=== PATIENT | female | born 2000 | race Two or more races ===

== ENCOUNTER 2024-06-17 17:44 | Emergency (ER) | payer OTHER, MEDICAID ==
[~2024-06-17] VITALS: Ht 144.8 cm; Wt 61.4 kg
--- NOTE | 2024-06-17 18:22 | ED.PDOC ---
History of Present Illness HPI Comments 33-year-old female who comes in with chief complaint of some left and right flank pain. The patient states that the symptoms started approximately 30 minutes ago and then she started having some mild vaginal bleeding. She does have a history of PCOS. She states that this is her 1st and so she came to the emergency department's for evaluation. There has been no other complaints at this time. The patient denies any dysuria. Chief Complaint: Vaginal Bleed Time Seen by MD: 17:51 Reviewed Notes: Nurses Notes, Medications, Allergies (No allergies to medications) Allergies: Coded Allergies: NO KNOWN ALLERGIES (Unverified , 06/17/24) Information Source: Patient Mode of Arrival: Ambulatory Severity: Moderate Timing: Minutes Duration: Since onset Prehospital treatment: None Associated signs and symptoms No nausea, vomiting or diarrhea but the patient was having some vaginal bleeding and left and right flank pain Past Medical History Past Medical History (Other): PCOS Surgical History: Denies all surgeries JELLY MAKER History: No Pertinent JELLY MAKER History Family History Family History: Reviewed,noncontributory to illness, No family hx of Cancer, No family hx of DM, No family hx of Heart sachin, No family hx of HTN, No family hx ofKidney sachin, No family hx of Liver sachin, No family hx of Lung sachin, No family hx of Stroke Social History Smoker: Non-Smoker Alcohol: Denies ETOH Use Drugs: Denies Drug Use Lives In: Home Constitutional: denies: chills, diaphoresis, fatigue, fever, malaise, sweats, weakness, others EENTM: denies: blurred vision, double vision, ear bleeding, ear discharge, ear drainage, ear pain, ear ringing, eye pain, eye redness, hearing loss, mouth pain, mouth swelling, nasal discharge, nose bleeding, nose congestion, nose pain, photophobia, tearing, throat pain, throat swelling, voice changes, others Respiratory: denies: cough, hemoptysis, orthopnea, SOB at rest, shortness of breath, SOB with excertion, stridor, wheezing, others Cardiovascular: denies: chest pain, dizzy spells, diaphoresis, Dyspnea on exertion, edema, irregular heart beat, left arm pain, lightheadedness, palpitations, PND, syncope, others Gastrointestinal: denies: abdomen distended, abdominal pain, blood streaked bowels, constipated, diarrhea, dysphagia, difficulty swallowing, hematemesis, melena, nausea, poor appetite, poor fluid intake, rectal bleeding, rectal pain, vomiting, others Genitourinary: reports: abnormal vagina bleeding, pain, ; denies: burn ing, dyspareunia, dysuria, flank pain, frequency, hematuria, incontinence, vagina discharge, urgency, others Neurological: denies: dizziness, fainting, headache, left sided numbness, left sided weakness, numbness, paresthesia, pre-existing deficit, right sided numbness, right sided weakness, seizure, speech problems, tingling, tremors, weakness, others Musculoskeletal: denies: back pain, gout, joint pain, joint swelling, muscle pain, muscle stiffness, neck pain, others Integumetry: denies: bruises, change in color, change in hair/nails, dryness, laceration, lesions, lumps, rash, wounds, others Allergic/Immunocompromised: denies: Difficulty Healing, Frequent Infections, Hi ves, Itching, others Hematologic/Lymphatic: denies: anemia, blood clots, easy bleeding, easy bruising, swollen glands, others Endocrine: denies: excessive hunger, excessive sweating, excessive thirst, excessive urination, flushing, intolerance to cold, intolerance to heat, unexplained weight gain, unexplained weight loss, others Psychiatric: denies: anxiety, bipolar disorder, depression, hopeless, panic disorder, schizophrenia, sleepless, suicidal, others Physical Exam General Appearance: No Apparent Distress HEENT: Normal ENT Inspection, Pharynx Normal, TMs Normal Neck: Full Range of Motion, Non-Tender, Normal, Normal Inspection Respiratory: Chest Non-Tender, Lungs Clear, No Accessory Muscle Use, No Respiratory Distress, Normal Breath Sounds Cardiovascular: No Edema, No JVD, No Murmur, No Gallop, Normal Peripheral Pulses, Regular Rate/Rhythm Breast Exam: Deferred Gastrointestinal: No Organomegaly, Non Tender, No Pulsatile Mass, Normal Bowel Sounds, Soft Genitalia: Deferred Pelvic: Deferred Rectal: Deferred Extremities: No calf tenderness, Normal capillary refill, Normal inspection, Normal range of motion, Non-tender, No pedal edema Musculoskeletal : Apperance: Normal Neurologic: Alert, sole tacker II-XII nml as Tested, No Motor Deficits, Normal Affect, Normal Mood, No Sensory Deficits Cerebellar Function: Normal Reflexes: Normal Skin: Dry, Normal Color, Warm Lymphatic: No Adenopathy Was a procedure done? Was a procedure done?: No Differential Dx Considerations may include: Threatened , ectopic X-Ray, Labs, Meds, VS Vital Signs Date Time Temp Pulse Resp B/P (MAP) Pulse Ox O2 Delivery O2 Flow Rate FiO2 06/17/24 18:00 98.9 102 16 120/79 (93) 98 Lab Test 06/17/24 19:46 06/17/24 18:12 Range/Units Urine Color Pending Urine Clarity Pending Urine pH Pending Urine Specific Altha Pending Urine Protein Pending Urine Ketones Pending Urine Blood Pending Urine Nitrite Pending Urine Bilirubin Pending Urine Urobilinogen Pending Urine Leukocyte Esterase Pending Urine RBC Pending Urine Microscopic WBC Pending Urine Squamous Epithelial Cells Pending Urine Bacteria Pending Urine Glucose Pending Beta HCG, Quantitative 2875.4 H 1.5-4.2 mIU/mL Pelvic ultrasound shows: IMPRESSION: Possible early IUP at 5 weeks and 6 days. No heart rate is present at this time. This may be related to early gestational state. Close clinical and sonographic follow-up advised. Recommend correlation with serial beta HCG. The patient had a quantitative hCG at 2875 The patient was being discharged and will follow up with the primary care doctor The patient will return to the emergency department's the condition worsens. We did explain to the patient that there was no heart tones seen and there is a concern for demise at they do understand and agree with the management. They will follow up with her doctor Images Reviewed?: Images reviewed and evaluated by me Time of 1ST Reevaluation: 20:06 Reevaluation 1ST: Improved Patient Education/Counseling: Diagnosis, Treatment, Prognosis, Need For Follow Up Family Education/Counseling: No Family Present Departure 1 Departure Time of Disposition: 20:06 Impression: Primary Impression: Threatened Disposition: HOME / SELF CARE / HOMELESS Condition: Fair Discharged With: Self Critical Care Note Critical Care Time?: No Stability Stability form required: No Heart Score Heart Score: Heart Score Response (Comments) Value History N/A 0 EKG N/A 0 Age N/A 0 Risk Factors N/A 0 Troponin N/A 0 Total 0 EASTON HAYNES MD Jun 17, 2024 18:22
--- NOTE | 2024-06-17 19:30 | DVH ---
OB ULTRASOUND <14 WEEKS: HISTORY: pain TECHNIQUE: Multiple real-time grayscale sonographic images of the pelvis with duplex Doppler color f low, spectral and M-mode analysis. TRANSDUCERS: Transabdominal and transvaginal COMPARISON: None FINDINGS: The uterus measures 6.5 x 4.5 x 4.1 cm The cervix is not visualized Right ovary measures 2.2 x 1.8 x 1.7 cm with normal Doppler color flow. Left ovary measures 4.2 x 3.1 x 3.0 cm with normal Doppler color flow. Left ovarian cyst measures 2.7 cm. IUP single fetus at 5 weeks and 6 days average ultrasound age based on mean crown-rump length of 0.3 cm and gestational sac size of 0.8 cm No heart rate at this time. Yolk sac is present. Amniotic fluid subjectively within normal limits Cat-gestational space: Unremarkable IMPRESSION: Possible early IUP at 5 weeks and 6 days. No heart rate is present at this time. This may be r elated to early gestational state. Close clinical and sonographic follow-up advised. Recommend corre lation with serial beta HCG.
[2024-06-17 19:48] LABS: Urine Bacteria None Seen /hpf (None Seen)
[2024-06-17 20:06] LABS: Urine Blood 2+ /uL (Negative); Urine Clarity Clear (Clear); Urine Color Colorless (Yellow); Urine Protein, UAD Negative (Negative); Urine Specific Gravity 1.008 (1.001-1.035); Urine Squamous Epithelial Cell FEW /hpf (<5); Urine Urobilinogen Normal (Negative); Urine WBC < 1 /HPF (0-5); Urine pH 5.5 (5.0-9.0)
[2024-06-17 20:50] VITALS: BP 109/78; PULSE 88; RESP 12; TEMP 98.5; O2SAT 98
== END 2024-06-17 21:21 | disposition home or self-care (01) ==
LOC: ER 17:44
DX: O20.0 Threatened abortion (principal); R10.2 Pelvic and perineal pain; E28.2 Polycystic ovarian syndrome; Z3A.00 Weeks of gestation of pregnancy not specified
CPT/HCPCS: 36415; 76801; 76817; 81001; 84702

== ENCOUNTER 2024-06-18 21:39 | Emergency (ER) | payer OTHER, MEDICAID ==
[~2024-06-18] VITALS: Ht 152.4 cm; Wt 62.8 kg
[2024-06-18 22:08] LABS: Urine Bacteria None Seen /hpf (None Seen)
--- NOTE | 2024-06-18 22:08 | ED.PDOC ---
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 23F was in the ER yesterday for having light bleeding while being 6 weeks and being . Patient states she is six weeks gestation. Yesterday, Pt was diagnosed w/ a threatened abortionand was informed to come back to the ER if symptoms worsen. Today, Pt was having lower ABD cramping pain associated w/ heavy vaginal bleeding and passing a "big blood clot". PMHX:PCOS and Anxiety SHX: Denies any REVIEW OF SYSTEMS: CONSTITUTIONAL: Denies acute: fever, diaphoresis, chills, generalized weakness. HEAD: Denies acute: headache, photophobia Eyes: Denies acute: Double vision, vision loss, eye pain, eye discharge. EARS: Denies acute: tinnitus, hearing loss, ear discharge, ear pain, THROAT: Denies acute: sore throat, swelling, difficulty swallowing , pain with swallowing, change in voice. NECK: Denies acute: neck pain, neck swelling, stiff neck. HEART: Denies acute : chest pain, palpitations, LUNGS: Denies acute: SOB, wheezing, cough, hemoptysis ABDOMEN: Denies acute: abdominal pain, Nausea, Vomiting, diarrhea, melena , hematemesis, hematochezia SKIN: Denies acute: rash, redness, lesions, itchiness. EXTREMITIES: Denies acute: calf pain, numbness, tingling, weakness, denies pain in extremity. Denies acute: Low back pain. Neuro: Denies acute: focal neurological deficit, motor or sensory focal neurological deficit, tremors, seizure like activity, confusion, dizziness, change in mental status, loss of bowel or bladder function, cauda equina like symptoms. : Denies acute: dysuria, hematuria, flank pain, increase in urinary frequency. PSYCH: Denies acute: hallucination, suicidal ideation, homicidal ideation. FEMALE: Denies acute: foul odor, unusual discharge. PHYSICAL EXAM: General: no acute distress, awake and alert. Head: normocephalic, atraumatic. Neck: supple, trachea is midline, no swelling. Throat: Normal phonation. Eyes:, no erythema, no purulent discharge, no proptosis, no icterus. Heart: regular rate, regular rhythm, no significant murmur appreciated. Lungs: no apparent respiratory distress, Able to speak in full sentences. No wheezing, no rhonchi, no crackles. No stridors Clear to auscultation bilaterally. Abdomen: Pelvic tender to palpation, non distended, soft, no guarding, no rebound, + bowel sounds. Neuro: Awake, Alert, oriented to name, self, situation, follows commands GCS=15. Speech is normal. Skin: no petechia, no purpura, no cyanosis, non-pale, not jaundice. Lower extremities: --no - Pitting edema no deformity, no focal swelling, no calf TTP. Makes eye contact. moves all four extremities. Face: no apparent facial droop. Ambulating in the ED independently. ED COURSE: Chief Complaint: Time Seen by MD: 22:40 Reviewed Notes: Nurses Notes, Allergies Allergies: Coded Allergies: NO KNOWN ALLERGIES (Unverified , 06/17/24) Information Source: Patient Mode of Arrival: Ambulatory Timing: Hours Prehospital treatment: None Severity: Moderate Vaginal Discharge: None Vaginal Lesions: None Bleeding Quality: Clotted Vaginal Mass: None Onset Of Mass/Bleeding: Spontaneous Sexual Activity: Last Consensual [place]: Unknown Control: None History of: Current Blood Type: Unknown Symptoms of Possible : Missed Period Associated Signs and Symptoms: Vaginal Bleeding Past Medical History PAST MEDICAL HISTORY: Anxiety Past Medical History (Other): PCOS, Surgical History: Denies all surgeries [employer] [employer] History: Ovarian Cysts Family History Family History: Reviewed,noncontributory to illness, Unknown Social History Smoker: Non-Smoker Alcohol: Denies ETOH Use Drugs: Denies Drug Use Lives In: Home Was a procedure done? Was a procedure done?: No Differential Diagnosis ([facility]) Vaginal Bleeding: Other (Differential diagnosis includes but not limited to DU B, menorrhea, metromenorrhagia, neoplasm, coagulopathy,, trauma, miscarriage, placenta previa, placental abruption, ) X-Ray, Labs, Meds, VS Vital Signs Date Time Temp Pulse Resp B/P (MAP) Pulse Ox O2 Delivery O2 Flow Rate FiO2 06/18/24 21:48 98.0 113 18 123/65 (84) 98 Lab Test 06/18/24 22:30 06/18/24 21:50 Range/Units White Blood Count 17.6 H 4.4-10.8 10^3/uL Red Blood Count 4.30 4.0-5.20 10^6/uL Hemoglobin 13.2 12.2-16.2 g/dL Hematocrit 38.3 36.0-46.0 % Mean Corpuscular Volume 89.0 80.0-100.0 fL Mean Corpuscular Hemoglobin 30.6 28.0-32.0 pg Mean Corpuscular Hemoglobin Concent 34.4 32.0-36.0 g/dL Red Cell Distribution Width 13.0 11.8-14.3 % Platelet Count 477 H 140-450 10^3/uL Mean Platelet Volume 6.9 6.9-10.8 fL Neutrophils (%) (Auto) 70.1 37.0-80.0 % Lymphocytes (%) (Auto) 20.4 10.0-50.0 % Monocytes (%) (Auto) 6.4 0.0-12.0 % Eosinophils (%) (Auto) 2.5 0.0-7.0 % Basophils (%) (Auto) 0.6 0.0-2.0 % Neutrophils # (Auto) 12.3 H 1.6-8.6 10 ^3/uL Lymphocytes # (Auto) 3.6 0.4-5.4 10 ^3/uL Monocytes # (Auto) 1.1 0-1.3 10 ^3/uL Eosinophils # (Auto) 0.4 0-0.8 10 ^3/uL Basophils # (Auto) 0.1 0-0.2 10 ^3/uL Nucleated Red Blood Cells 0.0 % Sodium Level 139 136-145 mmol/L Potassium Level 3.3 L 3.5-5.1 mmol/L Chloride Level 103 98-107 mmol/L Carbon Dioxide Level 26 20-31 mmol/L Anion Gap 10 5-15 Blood Urea Nitrogen 11 9-23 mg/dL Creatinine 0.68 0.550-1.02 mg/dL Glomerular Filtration Rate Calc 124 >90 mL/min BUN/Creatinine Ratio 16.2 10.0-20.0 Serum Glucose 104 74-106 mg/dL Lactic Acid Level 1.1 0.4-2.0 mmol/L Calcium Level 10.3 8.7-10.4 mg/dL Total Bilirubin 0.3 0.2-1.0 mg/dL Aspartate Amino Transferase (AST) 12 L 13-40 U/L Alanine Aminotransferase (ALT) 13 7-40 U/L Alkaline Phosphatase 66 46-116 U/L Total Protein 8.1 5.7-8.2 g/dL Albumin 4.9 H 3.2-4.8 g/dL Lipase 53 12-53 U/L Beta HCG, Quantitative 2080.5 H 1.5-4.2 mIU/mL Urine Color Brown H Yellow Urine Clarity Turbid H Clear Urine pH 8.5 5.0-9.0 Urine Specific [place] 1.026 1.001-1.035 Urine Protein 1+ H Negative Urine Ketones Negative Negative Urine Blood 3+ H Negative /uL Urine Nitrite Negative Negative Urine Bilirubin Negative Negative Urine Urobilinogen Normal Negative mg/dL Urine Leukocyte Esterase Trace Negative /uL Urine RBC 103 0 - 4 /hpf Urine Microscopic WBC 9 H 0-5 /HPF Urine Squamous Epithelial Cells Mod <5 /hpf Urine Bacteria None seen None Seen /hpf Urine Mucus Few None Seen Urine Glucose Normal Normal mg/dL [place] [address] Ph: [phone] DIAGNOSTIC IMAGING Diagnostic Imaging Report : [id number] Signed PATIENT: RENZO CROWE ACCT: [id number] UNIT: [id number] : 2000 LOC: ER ROOM / BED: / AGE / SEX: 23 / F ADM STATUS: REG ER SERVICE 52 ORDERING PHYSICIAN: VANNESA MCCULLOUGH DO PROCEDURE(s): OB4US - OB ULTRASOUND COMP LESS 14WKS REASON: vag bleed, cramps ORDER NUMBER(s): [id number], ACCESSION NUMBER(s): [id number] OB ULTRASOUND <14 WEEKS: HISTORY: vag bleed, cramps TECHNIQUE: Multiple real-time grayscale sonographic images of the pelvis with duplex Doppler color flow, spectral and M-mode analysis. TRANSDUCERS: COMPARISON: US OB ULTRASOUND COMP LESS 14WKS on DOS: 06/17/24 FINDINGS: Uterus measures 7.3 by 4 by 4.75 cm. There decidual reaction involving the endometrium and there is a gestational sac in the fundus. Gestational sac has a mean sac diameter of 9.2 mm. There appears to be a pole. There is also subchorionic hemorrhage adjacent to the gestational sac measuring 9.5 x 8 x 5 mm. Right ovary measures 2.3 x 1.7 x 2 cm and otherwise unremarkable. Left ovary measures 3.6 x 2.8 x 2.75 cm and has a large cyst yoselin suring 2.35 x 2.35 x 2.05 cm. Is also a yolk sac in the gestational sac. [place]-rump length of the fetus is 2 mm. heart rate is 94 beats per minute. IMPRESSION: 1. Single viable intrauterine in the 1st half of the 1st trimester. Gestational age is approximately 5 weeks and 6 days estimated dated delivery of February 13, 2025. Follow-up ultrasound examination before the 20th week is suggested to determine the lie in the anatomy and relationship between the placenta and the internal os. ATED BY: SOHAIL GONZALEZ MD DICTATED DATE/TIME: 06/18/242258 SIGNED BY: SOHAIL GONZALEZ MD SIGNED DATE/TIME: 06/18/242258 CC: Time of 1ST Reevaluation: 22:10 Reevaluation 1ST: Unchanged Patient Education/Counseling: Diagnosis, Treatment Family Education/Counseling: No Family Present Comments Patient presented with the above HPI.--vaginal bleeding in ----workup was initiated. patient was found with the above mentioned diagnosis. the following medications were ordered: please refer to order lists of meds and tests obtained by myself Dr. Mccullough. Patient ED course and VS have been stabilized. Patient has been reassessed in the ED and remained in a stable condition. Pertinent incidental findings were discussed with the patient and/or family. Patient/family voices understanding and is agreeable with plan. Patient has been observed in the ED adequate length of time to insure improvement/stability. Escalation of care considered: Consideration of escalation to observation or admission Patient was DISCHARGED home in a stable condition. All the reports of any imaging studies that were ordered by myself were reviewed by myself. Departure 1 Departure Time of Disposition: 00:05 Impression: Primary Impression: Threatened Additional Impression: Vaginal bleeding during Disposition: HOME / SELF CARE / HOMELESS Condition: Stable Additional Instructions: Additional discharge instructions: You MUST follow-up with your primary care/family doctor in 1 to 2 days. If you are unable to see your primary care/family doctor, please return to our emergency room for re-assessment and re-evaluation in 1 to 2 days. Return to the emergency room here in our facility or to the nearest ER [facility] if your symptoms change or worsen. CONSULTATIONS: you MUST Follow-up for consultation as soon as possible with: Dr.-OB Diaz doctor in 1-2 days. Please call for appointment. You MUST call the consultants office yourself to make an appointment. You may need to arrange that through your insurance and/or your primary/family doctor. If you are unable to see the clinical sales consultant in 1 to 2 days, you must return to our emergency room (or any other ER of your choice) for re-assessment and re- evaluation. Adequate fluid hydration. Beta-hCG level June 17, 2024 is 2875 June 18, 2024 is 2079 Your beta-hCG level is trending down. This could be a miscarriage or threatened . However he ultrasound shows intrauterine viable with a heart rate of 94. Please repeat beta-hCG levels in 48-72 hours. Repeat pelvic ultrasound in four days. Absolute pelvic rest. Continue taking all vitamins. Avoid NSAIDs. Use only Tylenol for pain control. Take daily iron supplements as well while you are bleeding. Below is a copy of your radiological report for follow up: [place] [address] Ph: [phone] DIAGNOSTIC IMAGING Diagnostic Imaging Report : [id number] Signed PATIENT: RENZO CROWE ACCT: [id number] UNIT: [id number] : 2000 LOC: ER ROOM / BED: / AGE / SEX: 23 / F ADM STATUS: REG ER SERVICE 52 ORDERING PHYSICIAN: VANNESA MCCULLOUGH DO PROCEDURE(s): OB4US - OB ULTRASOUND COMP LESS 14WKS REASON: vag bleed, cramps ORDER NUMBER(s): [id number], ACCESSION NUMBER(s): [id number] OB ULTRASOUND <14 WEEKS: HISTORY: vag bleed, cramps TECHNIQUE: Multiple real-time grayscale sonographic images of the pelvis with duplex Doppler color flow, spectral and M-mode analysis. TRANSDUCERS: COMPARISON: US OB ULTRASOUND COMP LESS 14WKS on DOS: 06/17/24 FINDINGS: Uterus measures 7.3 by 4 by 4.75 cm. There decidual reaction involving the endometrium and there is a gestational sac in the fundus. Gestational sac has a mean sac diameter of 9.2 mm. There appears to be a pole. There is also subchorionic hemorrhage adjacent to the gestational sac measuring 9.5 x 8 x 5 mm. Right ovary measures 2.3 x 1.7 x 2 cm and otherwise unremarkable. Left ovary measures 3.6 x 2.8 x 2.75 cm and has a large cyst measuring 2.35 x 2.35 x 2.05 cm. Is also a yolk sac in the gestational sac. [place]-rump length of the fetus is 2 mm. heart rate is 94 beats per minute. IMPRESSION: 1. SINGLE VIABLE INTRAUTERINE in the 1st half of the 1st trimester. Gestational age is approximately 5 weeks and 6 days estimated dated delivery of February 13, 2025. Follow-up ultrasound examination before the 20th week is suggested to determine the lie in the anatomy and relationship between the placenta and the internal os. ATED BY: SOHAIL GONZALEZ MD DICTATED DATE/TIME: 06/18/242258 SIGNED BY: SOHAIL GONZALEZ MD SIGNED DATE/TIME: 06/18/242258 CC: e-Prescriptions Cephalexin Monohydrate (Cephalexin) 500 Mg Tab 1 TAB PO TID for 5 Days, #15 TAB Prov: VANNESA MCCULLOUGH DO 06/19/24 Discharged With: Self Critical Care Note Critical Care Time?: No I personally scribed for VANNESA MCCULLOUGH DO ([email or web address]) on 06/18/24 at 22:08. Electronically submitted by Jomar Cabrera ([email or web address]). VANNESA MCCULLOUGH DO Jun 18, 2024 22:08
[2024-06-18 22:23] LABS: Urine Blood 3+ /uL (Negative); Urine Clarity Turbid (Clear); Urine Color Brown (Yellow); Urine Mucus FEW (None Seen); Urine Protein, UAD 1+ (Negative); Urine Specific Gravity 1.026 (1.001-1.035); Urine Squamous Epithelial Cell MOD /hpf (<5); Urine Urobilinogen Normal (Negative); Urine WBC 9 /HPF (0-5); Urine pH 8.5 (5.0-9.0)
[2024-06-18 22:48] LABS: Basophils # (auto) 0.1 10 ^3/uL (0-0.2); Basophils % (auto) 0.6 % (0.0-2.0); Eosinophils # (auto) 0.4 10 ^3/uL (0-0.8); Eosinophils % (auto) 2.5 % (0.0-7.0); Hematocrit 38.3 % (36.0-46.0); Hemoglobin 13.2 g/dL (12.2-16.2); Lymphocytes # (auto) 3.6 10 ^3/uL (0.4-5.4); Lymphocytes % (auto) 20.4 % (10.0-50.0); Mean Corpuscular Hemoglobin 30.6 pg (28.0-32.0); Mean Corpuscular Hgb Conc. 34.4 g/dL (32.0-36.0); Monocytes # (auto) 1.1 10 ^3/uL (0-1.3); Monocytes % (auto) 6.4 % (0.0-12.0); Neutrophils # (auto) 12.3 10 ^3/uL (1.6-8.6); Neutrophils % (auto) 70.1 % (37.0-80.0); Platelet Count (auto) 477 10^3/uL (140-450); White Blood Cell 17.6 10^3/uL (4.4-10.8)
--- NOTE | 2024-06-18 23:01 | DVH ---
OB ULTRASOUND <14 WEEKS: HISTORY: vag bleed, cramps TECHNIQUE: Multiple real-time grayscale sonographic images of the pelvis with duplex Doppler color f low, spectral and M-mode analysis. TRANSDUCERS: COMPARISON: US OB ULTRASOUND COMP LESS 14WKS on DOS: 06/17/24 FINDINGS: Uterus measures 7.3 by 4 by 4.75 cm. There decidual reaction involving the endometrium and there is a gestational sac in the fundus. Gestational sac has a mean sac diameter of 9.2 mm. There appears to be a pole. There is also s ubchorionic hemorrhage adjacent to the gestational sac measuring 9.5 x 8 x 5 mm. Right ovary measures 2.3 x 1.7 x 2 cm and otherwise unremarkable. Left ovary measures 3.6 x 2.8 x 2.75 cm and has a large cyst measuring 2.35 x 2.35 x 2.05 cm. Is also a yolk sac in the gestational sac. [place]-rump length of the fetus is 2 mm. heart rate is 94 beats per minute. IMPRESSION: 1. Single viable intrauterine in the 1st half of the 1st trimester. Gestational age is appr oximately 5 weeks and 6 days estimated dated delivery of February 13, 2025. Follow-up ultrasound examination before the 20th week is suggested to determine the lie in the anatomy and relationship between the placenta and the internal os.
[2024-06-18 23:07] LABS: Alanine Aminotransferase 13 U/L (7-40); Alkaline Phosphatase 66 U/L (46-116); Anion Gap 10 (5-15); BUN/Creatinine Ratio 16.2 (10.0-20.0); Bilirubin, Total 0.3 mg/dL (0.2-1.0); Blood Urea Nitrogen 11 mg/dL (9-23); Calcium 10.3 mg/dL (8.7-10.4); Carbon Dioxide 26 mmol/L (20-31); Chloride 103 mmol/L (98-107); Glucose 104 mg/dL (74-106); Sodium 139 mmol/L (136-145); Total Protein 8.1 g/dL (5.7-8.2)
[2024-06-18 23:10] LABS: Albumin 4.9 g/dL (3.2-4.8); Aspartate Aminotransferase 12 U/L (13-40); Lipase 53 U/L (12-53); Potassium 3.3 mmol/L (3.5-5.1)
[2024-06-19] MEDS ORDERED: CEPH500T PO (02:03)
[2024-06-19 02:15] VITALS: BP 112/82
[2024-06-19] MEDS: cefTRIAXone 1GM/50ML D5W 50 ML IV ONE (02:54)
[2024-06-19 03:04] VITALS: PULSE 98; RESP 16; O2SAT 98
== END 2024-06-19 03:15 | disposition home or self-care (01) ==
LOC: ER 21:39
DX: O20.0 Threatened abortion (principal); Z3A.01 Less than 8 weeks gestation of pregnancy
CPT/HCPCS: 36415; 76801; 76817; 80053; 81001; 83605; 83690; 84702; 85025; 86850; 86900; 86901; 96365; 99285; J0696

== ENCOUNTER 2024-06-21 12:47 | Emergency (ER) | payer OTHER, MEDICAID ==
[~2024-06-21] VITALS: Ht 144.8 cm; Wt 63.9 kg
[~2024-06-21 12:47] MED LIST: CEPH500T PO
--- NOTE | 2024-06-21 13:43 | ED.PDOC ---
FAMILY SUPPORT WORKER HPI Comments HPI: Poor Historian. 23 y.o female presents to the ED for a follow up repeated beta HCG. patient is 6 weeks gestation, was seen on 06/17/24 s/p being diagnosed w/ a threatened and complaining of lower ABD cramping pain associated w/ heavy vaginal bleeding and passing a "big blood clot". Patient presents now for a follow up as she was unable to get an appointment with FAMILY SUPPORT WORKER. Patient reports bleeding and cramping is minimal now and is not passing any blood clots. Patient denies any new symptoms or pain at this time. Patient was prescribed Antibiotics for a UTI diagnosed on her 06/17/24 visit. 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 HEAD: Denies acute: headache, photophobia Eyes: Denies acute: Double vision, vision loss, eye pain, eye discharge. EARS: Denies acute: tinnitus, hearing loss, ear discharge, ear pain, THROAT: Denies acute: sore throat, swelling, difficulty swallowing , pain with swallowing, change in voice. NECK: Denies acute: neck pain, neck swelling, stiff neck. HEART: Denies acute : chest pain, palpitations, LUNGS: Denies acute: SOB, wheezing, cough, hemoptysis ABDOMEN: Denies acute: abdominal pain, Nausea, Vomiting, diarrhea, melena , hematemesis, hematochezia SKIN: Denies acute: rash, redness, lesions, itchiness. EXTREMITIES: Denies acute: calf pain, numbness, tingling, weakness, denies pain in extremity. Denies acute: Low back pain. Neuro: Denies acute: focal neurological deficit, motor or sensory focal neurological deficit, tremors, seizure like activity, confusion, dizziness, change in mental status, loss of bowel or bladder function, cauda equina like symptoms. : Denies acute: dysuria, hematuria, flank pain, increase in urinary frequency. PSYCH: Denies acute: hallucination, suicidal ideation, homicidal ideation. FEMALE: Denies acute: abnormal vaginal bleeding, foul odor, unusual discharge. PHYSICAL EXAM: General: no acute distress, awake and alert. Head: normocephalic, atraumatic. Neck: supple, trachea is midline, no swelling. Throat: Normal phonation. Eyes:, no erythema, no purulent discharge, no proptosis, no icterus. Heart: regular rate, regular rhythm, no significant murmur appreciated. Lungs: no apparent respiratory distress, Able to speak in full sentences. No wheezing, no rhonchi, no crackles. No stridors Clear to auscultation bilaterally. Abdomen: non tender to palpation, non distended, soft, no guarding, no rebound, + bowel sounds. Neuro: Awake, Alert, oriented to name, self, situation, follows commands GCS=15. Speech is normal. Skin: no petechia, no purpura, no cyanosis, non-pale, not jaundice. Lower extremities: --no - Pitting edema no deformity, no focal swelling, no calf TTP. Makes eye contact. moves all four extremities. Face: no apparent facial droop. Ambulating in the ED independently. 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 Was a procedure done?: No Differential Diagnosis (BULK SEALER) Vaginal Bleeding: - Complete, - Incomplete, - Inevitable, - Missed, - Threatened, Blood Loss Anemia, Dysmenorrhea, Ectopic , Hormonal, Menorrhagia, Menometrorrhagia, Menstrual Bleeding, Myomatous Uterus, PID, Placenta Previa, Precipitous Hct, Trauma, UTI X-Ray, Labs, Meds, VS Vital Signs Date Time Temp Pulse Resp B/P (MAP) Pulse Ox O2 Delivery O2 Flow Rate FiO2 06/21/24 15:49 98.6 89 14 129/79 (96) 99 98.6 06/21/24 15:47 18 98 Room Air* 0 21 06/21/24 13:16 98.3 93 16 121/69 (86) 98 Lab Test 06/21/24 14:06 Range/Units Beta HCG, Quantitative 121.0 H 1.5-4.2 mIU/mL [facility] [address] [place] [address] Ph: [phone] DIAGNOSTIC IMAGING Diagnostic Imaging Report : [id number] Signed PATIENT: RENZO CROWE ACCT: [id number] UNIT: [id number] : 2000 LOC: ER ROOM / BED: / AGE / SEX: 23 / F ADM STATUS: REG ER SERVICE 52 ORDERING PHYSICIAN: VANNESA MCCULLOUGH DO PROCEDURE(s): OB4US - OB ULTRASOUND COMP LESS 14WKS REASON: vag bleed, cramps ORDER NUMBER(s): [id number], ACCESSION NUMBER(s): [id number] OB ULTRASOUND <14 WEEKS: HISTORY: vag bleed, cramps TECHNIQUE: Multiple real-time grayscale sonographic images of the pelvis with duplex Doppler color flow, spectral and M-mode analysis. TRANSDUCERS: COMPARISON: US OB ULTRASOUND COMP LESS 14WKS on DOS: 06/17/24 FINDINGS: Uterus measures 7.3 by 4 by 4.75 cm. There decidual reaction involving the endometrium and there is a gestational sac in the fundus. Gestational sac has a mean sac diameter of 9.2 mm. There appears to be a pole. There is also subchorionic hemorrhage adjacent to the gestational sac measuring 9.5 x 8 x 5 mm. Right ovary measures 2.3 x 1.7 x 2 cm and otherwise unremarkable. Left ovary measures 3.6 x 2.8 x 2.75 cm and has a large cyst measuring 2.35 x 2.35 x 2.05 cm. Is also a yolk sac in the gestational sac. Dixie-rump length of the fetus is 2 mm. heart rate is 94 beats per minute. IMPRESSION: 1. Single viable intrauterine in the 1st half of the 1st trimester. Gestational age is approximately 5 weeks and 6 days estimated dated delivery of February 13, 2025. Follow-up ultrasound examination before the 20th week is suggested to determine the lie in the anatomy and relationship between the placenta and the internal os. ATED BY: SOHAIL GONZALEZ MD DICTATED DATE/TIME: 06/18/242258 SIGNED BY: SOHAIL GONZALEZ MD SIGNED DATE/TIME: 06/18/242258 CC: [place] [address] Ph: [phone] DIAGNOSTIC IMAGING Diagnostic Imaging Report : [id number] Signed PATIENT: RENZO CROWE ACCT: [id number] UNIT: [id number] : 2000 LOC: ER ROOM / BED: / AGE / SEX: 23 / F ADM STATUS: REG ER SERVICE 1329 ORDERING PHYSICIAN: VANNESA MCCULLOUGH DO PROCEDURE(s): OB4US - OB ULTRASOUND COMP LESS 14WKS REASON: ORDER NUMBER(s): [id number], ACCESSION NUMBER(s): [id number] OB ULTRASOUND <14 WEEKS: HISTORY: TECHNIQUE: Multiple real-time grayscale sonographic images of the pelvis with duplex Doppler color flow, spectral and M-mode analysis. TRANSDUCERS: Transabdominal; patient refuses transvaginal exam at this time FINDINGS: The uterus measures 7.9 x 3.6 x 3.6 cm The cervix not Right ovary measures 2.8 x 1.8 x 2.2 cm. Ovarian volume 5.6 cc with normal Doppler color flow Left ovary measures 2.8 x 2.1 x 2.3 cm. Volume is 7 cc. There is a 2.2 x 1.3 x 1.4 cm anechoic lesion left ovary most likely a follicle. with normal Doppler color flow No gestational sac noted in the endometrial canal. IMPRESSION: 1. No IUP visualized. Beta HCG. 06/17/2024: 12/08/2074 06/15/2024: 207906/21/2024: 121 ATED BY: SARKIS MCQUEEN Jr., DO DICTATED DATE/TIME: 06/21/24 1548 SIGNED BY: SARKIS MCQUEEN Jr., SIGNED DATE/TIME: 06/21/24 1548 CC: Time of 1ST Reevaluation: 13:33 Reevaluation 1ST: Unchanged Patient Education/Counseling: Diagnosis, Treatment Family Education/Counseling: No Family Present Comments Patient presented with the above HPI.---threatened ---workup was initiated. patient was found with the above mentioned diagnosis. the following medications were ordered: please refer to order lists of meds and tests obtained by myself Dr. Mccullough. Patient ED course and VS have been stabilized. Patient has been reassessed in the ED and remained in a stable condition. Pertinent incidental findings were discussed with the patient and/or family. Patient/family voices understanding and is agreeable with plan. Patient has been observed in the ED adequate length of time to insure improvement/stability. Escalation of care considered: Consideration of escalation to observation or admission Beta-hCG levels are significantly dropping. Ultrasound shows no IUP. Patient was DISCHARGED home in a stable condition. All the reports of any imaging studies that were ordered by myself were reviewed by myself. [place] [address] Ph: [phone] DIAGNOSTIC IMAGING Diagnostic Imaging Report : [id number] Signed PATIENT: RENZO CROWE ACCT: [id number] UNIT: [id number] : 2000 LOC: ER ROOM / BED: / AGE / SEX: 23 / F ADM STATUS: REG ER SERVICE 1329 ORDERING PHYSICIAN: VANNESA MCCULLOUGH DO PROCEDURE(s): OB4US - OB ULTRASOUND COMP LESS 14WKS REASON: ORDER NUMBER(s): [id number], ACCESSION NUMBER(s): [id number] OB ULTRASOUND <14 WEEKS: HISTORY: TECHNIQUE: Multiple real-time grayscale sonographic images of the pelvis with duplex Doppler color flow, spectral and M-mode analysis. TRANSDUCERS: Transabdominal; patient refuses transvaginal exam at this time FINDINGS: The uterus measures 7.9 x 3.6 x 3.6 cm The cervix not Right ovary measures 2.8 x 1.8 x 2.2 cm. Ovarian volume 5.6 cc with normal Doppler color flow Left ovary measures 2.8 x 2.1 x 2.3 cm. Volume is 7 cc. There is a 2.2 x 1.3 x 1.4 cm anechoic lesion left ovary most likely a follicle. with normal Doppler color flow No gestational sac noted in the endometrial canal. IMPRESSION: 1. No IUP visualized. Beta HCG. 06/17/2024: 12/08/2074 06/15/2024: 207906/21/2024: 121 ATED BY: SARKIS MCQUEEN Jr., DO DICTATED DATE/TIME: 06/21/24 1548 SIGNED BY: SARKIS MCQUEEN Jr., SIGNED DATE/TIME: 06/21/24 1548 CC: Departure 1 Departure Time of Disposition: 16:19 Impression: Primary Impression: Miscarriage Disposition: 01 HOME / SELF CARE / HOMELESS Condition: Stable Additional Instructions: Additional discharge instructions: You MUST follow-up with your primary care/family doctor in 1 to 2 days. If you are unable to see your primary care/family doctor, please return to our emergency room for re-assessment and re-evaluation in 1 to 2 days. Return to the emergency room here in our facility or to the nearest ER [facility] if your symptoms change or worsen. CONSULTATIONS: you MUST Follow-up for consultation as soon as possible with: -BRY[facility] Gynyves doctor in 1-2 days. Please call for appointment You MUST call the consultants office yourself to make an appointment. You may need to arrange that through your insurance and/or your primary/family doctor. If you are unable to see the [employer] consultant in 1 to 2 days, you must return to our emergency room (or any other ER of your choice) for re-assessment and re- evaluation. Adequate fluid hydration. Beta HCG quant: 121.0 today. This has significantly dropped from most recent visit. This is consistent with miscarriage. Repeat beta-hCG levels in 48-72 hours. Absolute pelvic rest. Below is a copy of your radiological report for follow up: [address] [address] Ph: [phone] DIAGNOSTIC IMAGING Diagnostic Imaging Report : [id number] Signed PATIENT: RENZO CROWE ACCT: [id number] UNIT: [id number] : 2000 LOC: ER ROOM / BED: / AGE / SEX: 23 / F ADM STATUS: REG ER SERVICE 1329 ORDERING PHYSICIAN: VANNESA MCCULLOUGH DO PROCEDURE(s): OB4US - OB ULTRASOUND COMP LESS 14WKS REASON: ORDER NUMBER(s): [id number], ACCESSION NUMBER(s): [id number] OB ULTRASOUND <14 WEEKS: HISTORY: TECHNIQUE: Multiple real-time grayscale sonographic images of the pelvis with duplex Doppler color flow, spectral and M-mode analysis. TRANSDUCERS: Transabdominal; patient refuses transvaginal exam at this time FINDINGS: The uterus measures 7.9 x 3.6 x 3.6 cm The cervix not Right ovary measures 2.8 x 1.8 x 2.2 cm. Ovarian volume 5.6 cc with normal Doppler color flow Left ovary measures 2.8 x 2.1 x 2.3 cm. Volume is 7 cc. There is a 2.2 x 1.3 x 1.4 cm anechoic lesion left ovary most likely a follicle. with normal Doppler color flow No gestational sac noted in the endometrial canal. IMPRESSION: 1. No IUP visualized. Beta HCG. 06/17/2024: 12/08/2074 06/15/2024: 207906/21/2024: 121 ATED BY: SARKIS MCQUEEN Jr., DO DICTATED DATE/TIME: 06/21/24 1548 SIGNED BY: SARKIS MCQUEEN Jr., SIGNED DATE/TIME: 06/21/24 1548 CC: Discharged With: Self Critical Care Note Critical Care Time?: No I personally scribed for VANNESA MCCULLOUGH DO ([email or web address]) on 06/21/24 at 13:43. Electronically submitted by Aide Meza ([facility]). I personally scribed for VANNESA MCCULLOUGH DO ([email or web address]) on 06/21/24 at 14:22. Electronically submitted by Aide Meza ([facility]). I personally scribed for VANNESA MCCULLOUGH DO ([facility]) on 06/21/24 at 16:07. Electronically submitted by Aide Meza ([facility]). I personally scribed for VANNESA MCCULLOUGH DO ([facility]) on 06/21/24 at 21:20. Electronically submitted by Aide Meza ([facility]). VANNESA MCCULLOUGH DO Jun 21, 2024 13:43
[2024-06-21 15:47] VITALS: RESP 18; O2SAT 98
[2024-06-21 15:49] VITALS: BP 129/79; PULSE 89; RESP 14; TEMP 98.6; O2SAT 99
--- NOTE | 2024-06-21 15:51 | DVH ---
OB ULTRASOUND <14 WEEKS: HISTORY: TECHNIQUE: Multiple real-time grayscale sonographic images of the pelvis with duplex Doppler color f low, spectral and M-mode analysis. TRANSDUCERS: Transabdominal; patient refuses transvaginal exam at this time FINDINGS: The uterus measures 7.9 x 3.6 x 3.6 cm The cervix not Right ovary measures 2.8 x 1.8 x 2.2 cm. Ovarian volume 5.6 cc with normal Doppler color flow Left ovary measures 2.8 x 2.1 x 2.3 cm. Volume is 7 cc. There is a 2.2 x 1.3 x 1.4 cm anechoic lesio n left ovary most likely a follicle. with normal Doppler color flow No gestational sac noted in the endometrial canal. IMPRESSION: 1. No IUP visualized. Beta HCG. 06/17/2024: 12/08/2074 06/15/2024: 207906/21/2024: 121
== END 2024-06-21 16:34 | disposition home or self-care (01) ==
LOC: ER 12:47
DX: O03.9 Complete or unspecified spontaneous abortion without complication (principal); Z79.899 Other long term (current) drug therapy; Z3A.01 Less than 8 weeks gestation of pregnancy
CPT/HCPCS: 36415; 76801; 84702; 99284; J7030